=== PATIENT | male | born 1970 | race Caucasian/White ===

== ENCOUNTER 2016-09-19 08:28 | Day surgery (SDC) | payer OTHER ==
[2016-09-14 16:01] VITALS: BMI 25.7
[~2016-09-19 08:28] MED LIST: LACTATED RINGERS 1,000 ML IV SCH
[2016-09-19 08:45] VITALS: TEMP 97.4
[2016-09-19] MEDS ORDERED: LIDOCAINE 1% 20 ML VIAL (10MG/ML) FOR IV START INTRADERMA ONE (08:46)
[2016-09-19] MEDS ORDERED: TRIAMCINOLONE ACETONIDE 40 MG/ML 1 ML VIAL ONE (08:56)
[2016-09-19] MEDS ORDERED: fentaNYL (PF) 50 MCG/ML 2 ML AMP ONE (08:56)
[2016-09-19] MEDS ORDERED: MIDAZOLAM 2 MG/2 ML VIAL ONE (08:56)
[2016-09-19] MEDS ORDERED: IV FLUID CONTINUATION 1,000 ML IV ONE (09:31)
[2016-09-19 09:36] VITALS: RESP 18
[2016-09-19 09:49] VITALS: BP 107/67; PULSE 72
--- NOTE | 2016-09-19 10:11 | P.PCN ---
Date of Procedure: 09/19/16 Surgeon: Abhishek Fuentes Pathology: none sent Condition: stable Disposition: PACU Description of Procedure: PREOPERATIVE DIAGNOSIS: Lumbar spondylosis without myelopathy and facet arthropathy POSTOPERATIVE DIAGNOSIS: Lumbar spondylosis without myelopathy and facet arthropathy PROCEDURES: Left Radiofrequency thermocoagulation, L3, L4, and L5 medial branch , with fluoroscopic guidance. ANESTHESIA: 1% lidocaine plain; Conscious sedation with versed/fentanyl EBL: Minimal PROCEDURE INDICATION: The patient with low back pain secondary to lumbar arthropathy who had more than 50% relief of pain with previous diagnostic lumbar medial branch block with bupivacaine. Patient presents for RFA today; no use of blood thinners. PROCEDURE DESCRIPTION / TECHNIQUE: The patient was seen and identified in the preoperative area. Risks, benefits, complications, and alternatives were discussed with the patient (including but not limited to incomplete pain relief , bleeding, infection, nerve damage, and allergies to medications), the patient agreed to proceed with the procedure and signed the consent after all questions were answered. Patient was taken to the OR and time out was completed to verify proper patient , position, laterality of pain, and allergies. Pt was placed in the prone position. IV was started. Vital signs remained stable throughout the procedure. A pillow was placed under the patients chest to decrease lordosis. The lumbosacral area was prepped and draped in the usual sterile fashion. Vital signs were closely monitored during the procedure. Conscious sedation was used during the procedure to decrease patients anxiety. Using AP and then oblique fluoroscopy, the eye of the Naveen dog corresponding to the connection between the superior and transverse articular processes of left L4, L5 and top of the sacrum were identified, marked, and localized with 1% lidocaine. Subsequently, a 18 gauge, 100-mm radiofrequency cannula with a 10-mm active tip was advanced guided by fluoroscopy to each of the eyes of the Naveen dog at left L3, L4, and L5 medial branch levels. Each site then underwent sensory testing at 50 Hz and 0 to 1 volt and motor testing at 2 Hz and 0 to 3 volt with local stimulation, but no radicular symptoms down the legs. Thereafter the left L3, L4, and L5 medial branch sites underwent radiofrequency thermocoagulation at 80 degrees Celsius for 90 seconds after injecting 0.5 ml of PF lidocaine 1%. After thermocoagulation, 1 ml of the block solution containing Kenalog 40 mg and 2 mL of preservative-free normal saline was injected at the left L3, L4, and L5 medial branch levels after negative aspiration of CSF and blood and with no paresthesias. Cannulas were retracted while injecting lidocaine 1% until the needles were removed. At the end of the procedure, the skin was cleansed and bandages were applied. COMPLICATIONS: No acute complications. DISPOSITION / PLANS: The patient was placed in a supine position and transferred to the recovery area in a stable condition for observation and was discharged from the recovery room after meeting discharge criteria. Home discharge instructions given to the patient by the staff. The patient was reexamined prior to discharge. The patient will schedule a follow up for right lumbar RFA.
--- NOTE | 2016-09-19 10:38 | FL ---
EXAMINATION TYPE: FL guided pain mgmt statistic DATE OF EXAM: 09/19/2016 9:32 AM CLINICAL HISTORY: Low back pain. TECHNIQUE: Fluoroscopy. COMPARISON: None. FINDINGS: Fluoroscopic guidance was provided during pain relief procedure performed by Dr. Fuentes . A total of 12 seconds of fluoroscopic time was utilized during the procedure and two spot images are acquired. Images acquired shows needle localization in the lower lumbar spine from posterior approac h. IMPRESSION: As Above.
== END 2016-09-19 10:02 | disposition home or self-care (01) ==
LOC: ORPAIN 08:28
PROVIDERS: ATTEND Anesthesiology
DX: M47.816 Spondylosis without myelopathy or radiculopathy, lumbar region (principal); M46.96 Unspecified inflammatory spondylopathy, lumbar region; F32.9 Major depressive disorder, single episode, unspecified; Z79.1 Long term (current) use of non-steroidal anti-inflammatories (NSAID); Z79.899 Other long term (current) drug therapy
CPT/HCPCS: 64635; 64636 ×2; 99152; J2250; J3301; J3010

== ENCOUNTER 2016-10-25 09:24 | Day surgery (SDC) | payer OTHER ==
[2016-10-24 08:29] VITALS: BMI 25.7
[2016-10-25] MEDS ORDERED: LIDOCAINE 1% 20 ML VIAL (10MG/ML) FOR IV START INTRADERMA ONE (09:38)
[2016-10-25 09:48] VITALS: RESP 16; TEMP 97.5
[2016-10-25] MEDS ORDERED: fentaNYL (PF) 50 MCG/ML 2 ML AMP ONE (10:20)
[2016-10-25] MEDS ORDERED: MIDAZOLAM 2 MG/2 ML VIAL ONE (10:20)
[2016-10-25] MEDS ORDERED: TRIAMCINOLONE ACETONIDE 40 MG/ML 1 ML VIAL ONE (10:20)
--- NOTE | 2016-10-25 10:43 | P.PCN ---
Date of Procedure: 10/25/16 Surgeon: Abhishek Fuentes Pathology: none sent Condition: stable Disposition: PACU Description of Procedure: PREOPERATIVE DIAGNOSIS: Lumbar spondylosis without myelopathy and facet arthropathy POSTOPERATIVE DIAGNOSIS: Lumbar spondylosis without myelopathy and facet arthropathy PROCEDURES: Right Radiofrequency thermocoagulation, L3, L4, and L5 medial branch , with fluoroscopic guidance. ANESTHESIA: 1% lidocaine plain; Conscious sedation with versed/fentanyl EBL: Minimal PROCEDURE INDICATION: The patient with low back pain secondary to lumbar arthropathy who had more than 50% relief of pain with previous diagnostic lumbar medial branch block with bupivacaine. Patient presents for RFA today; no use of blood thinners. PROCEDURE DESCRIPTION / TECHNIQUE: The patient was seen and identified in the preoperative area. Risks, benefits, complications, and alternatives were discussed with the patient (including but not limited to incomplete pain relief , bleeding, infection, nerve damage, and allergies to medications), the patient agreed to proceed with the procedure and signed the consent after all questions were answered. Patient was taken to the OR and time out was completed to verify proper patient , position, laterality of pain, and allergies. Pt was placed in the prone position. IV was started. Vital signs remained stable throughout the procedure. A pillow was placed under the patients chest to decrease lordosis. The lumbosacral area was prepped and draped in the usual sterile fashion. Vital signs were closely monitored during the procedure. Conscious sedation was used during the procedure to decrease patients anxiety. Using AP and then oblique fluoroscopy, the eye of the Naveen dog corresponding to the connection between the superior and transverse articular processes of right L4, L5 and top of the sacrum were identified, marked, and localized with 1% lidocaine. Subsequently, a 18 gauge, 100-mm radiofrequency cannula with a 10-mm active tip was advanced guided by fluoroscopy to each of the eyes of the Naveen dog at right L3, L4, and L5 medial branches. Each site then underwent sensory testing at 50 Hz and 0 to 1 volt and motor testing at 2 Hz and 0 to 3 volt with local stimulation, but no radicular symptoms down the legs. Thereafter the right L3, L4, and L5 medial branch sites underwent radiofrequency thermocoagulation at 80 degrees Celsius for 90 seconds after injecting 0.5 ml of PF lidocaine 1%. After thermocoagulation, 1 ml of the block solution containing Kenalog 40 mg and 2 mL of preservative-free normal saline was injected at the right L3, L4, and L5 medial branch levels after negative aspiration of CSF and blood and with no paresthesias. Cannulas were retracted while injecting lidocaine 1% until the needles were removed. At the end of the procedure, the skin was cleansed and bandages were applied. COMPLICATIONS: No acute complications. DISPOSITION / PLANS: The patient was placed in a supine position and transferred to the recovery area in a stable condition for observation and was discharged from the recovery room after meeting discharge criteria. Home discharge instructions given to the patient by the staff. The patient was reexamined prior to discharge. The patient will schedule a follow up in the clinic in 4-6 weeks.
[2016-10-25] MEDS ORDERED: IV FLUID CONTINUATION 1,000 ML IV ONE (10:53)
--- NOTE | 2016-10-25 10:55 | FL ---
EXAMINATION TYPE: FL guided pain mgmt statistic DATE OF EXAM: 10/25/2016 10:48 AM HISTORY: Flouroscopy time 11 seconds of fluoroscopy provided. IMPRESSION: 1. Fluoroscopy time.
[2016-10-25 11:09] VITALS: BP 116/60; PULSE 56
== END 2016-10-25 11:33 | disposition home or self-care (01) ==
LOC: ORPAIN 09:24
PROVIDERS: ATTEND Anesthesiology
DX: G89.29 Other chronic pain (principal); M47.816 Spondylosis without myelopathy or radiculopathy, lumbar region; M46.96 Unspecified inflammatory spondylopathy, lumbar region; E03.9 Hypothyroidism, unspecified; Z79.1 Long term (current) use of non-steroidal anti-inflammatories (NSAID); Z79.899 Other long term (current) drug therapy
CPT/HCPCS: 64635; 64636; 99152; J2250; J3301; J3010

== ENCOUNTER → 2016-12-19 | Outpatient (CLI) | payer OTHER ==
[2016-12-19 14:41] VITALS: BP 129/79; PULSE 79; RESP 16; TEMP 97.3
--- NOTE | 2016-12-19 15:19 | P.PN ---
Subjective This is a follow-up visit for this 46 years old male, chronic history of severe low back pain with done radiofrequency ablation of the medial branch lumbar area , october and august 2016 , currently patient complaining of severe mid back pain localized mainly in the left side, he denies any motor or sensory deficit he denies any fever or night sweats and no change in bowel movement or urination, the pain is constant and increases with any activity or especially twisting of the torso Objective - Vital Signs Vital signs: Vital Signs Temp 97.3 F L 12/19/16 14:30 Pulse 79 12/19/16 14:30 Resp 16 12/19/16 14:30 BP 129/79 12/19/16 14:30 Pulse Ox 97 12/19/16 14:30 Intake & Output 12/18/16 12/19/16 12/19/16 18:59 06:59 18:59 Weight 83.007 kg - Exam Physical Examinations : 1-Constitutiona : Cooperative , not in acute distress . 2-HEENT : nech ; supple , no Lymphadenopathy , normal thyroid size . eyes : no ptosis , no icterus, no photophobia . ENT : normal of hearing , normal oropharynx , no Thrush . 3- Respiratory : Chest clear to auscultations Bilaterally , no wheezing , no Rhonchi . 4- Cardiovascular : regular rate and rhythem , S1 , S2 , no S3 , no S4. 5- Gastrointestinal : abdomen soft no tenderness , bowel sounds positive all four quadrents , no organomegally . 6- Genitourinary : Defferred . 7- neurologic : Cranial nerve II to XII intact , no focal neurological deffecit . 8-psychatric : alert , oriented X 3 , appropriate affect , intact judgment and insight . 9-Lymphatic : no Lymphadenopathy . 10- musculoskeltal : Thoracic spine= severe tenderness over the left side thoracic paravertebral muscles Lumber spine = normal moter stegnth lower extremities ,thigh and legs .5/5 deep tendon reflexes : normal Knee Jerk , normal ankle Jerk . positive lumber facet Loading Test strait leg raising test positive at 30 degree , RT ,LT , Fabere test positive RT and positive LT . Sever tenderness over the Sacroiliac joint on the Right , and Left side Assessment and Plan Plan: Assessment and plan= -chronic low back pain secondary to lumbar degenerative disc disease , lumbar spondylosis with lumbar facet arthropathy without myelopathy, Status post radiofrequency ablation of the medial branch lumbar area,(low back pain improved ) Myofascial pain syndrome thoracic paravertebral muscles Patient could benefit from physical therapy/massage to the thoracic paravertebral muscles Patient could benefit from Voltaren gel 1% to be applied to the thoracic area to 6 hours, discussed with the patient the option of giving him muscle relaxants and patient prefer not to have muscle relaxant because he is concerned about the side effect which is drowsiness and he will follow up with the pain clinic in 2 months Time with Patient: Less than 30
== END ==
LOC: PNWHC3 14:22
PROVIDERS: ATTEND Specialist
DX: M51.36 Other intervertebral disc degeneration, lumbar region (principal); M47.816 Spondylosis without myelopathy or radiculopathy, lumbar region; M46.86 Other specified inflammatory spondylopathies, lumbar region; M79.1 Myalgia
CPT/HCPCS: 99211

== ENCOUNTER → 2018-04-03 | Outpatient (CLI) | payer OTHER ==
--- NOTE | 2018-04-04 01:27 | MR ---
EXAMINATION TYPE: MR brain wo/w con DATE OF EXAM: 04/03/2018 COMPARISON: None HISTORY: Tinnitus/Hearing loss/Headaches TECHNIQUE: Multiplanar, multisequence images of the brain and brainstem is performed without and with IV contras t, utilizing 9 mL intravenous Gadavist . FINDINGS: Ventricles and sulci appear normal. There is no mass effect nor midline shift. There is no sign of in tracranial hemorrhage. Corpus callosum appears normal. Brainstem appears normal. There is minimal muc osal thickening right maxillary sinus. Sella turcica is normal. I see no evidence of cerebral edema. I see no pathologic enhancement. IMPRESSION: Negative MR scan of the brain.
== END | disposition home or self-care (01) ==
LOC: RADMRIMAIN 20:58
PROVIDERS: ATTEND Family Medicine
DX: R51 Headache (principal); H91.8X1 Other specified hearing loss, right ear
CPT/HCPCS: 70553; A9581

== ENCOUNTER → 2020-05-04 | Outpatient (CLI) | payer BC ==
--- NOTE | 2020-05-04 08:31 | US ---
EXAMINATION TYPE: US thyroid st tissue head/neck DATE OF EXAM: 05/04/2020 COMPARISON: NONE CLINICAL HISTORY: E04.1 thyroid nodule. 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 Doctor felt palpable left upper neck. GLAND SIZE: Right Lobe: 3.7 x 1.0 x 1.3 cm Overall Parenchyma: heterogenous Left Lobe: 3.3 x 0.8 x 1.2 cm Overall Parenchyma: heterogeneous Isthmus Thickness: 0.2 cm NODULES RIGHT: # of nodules measured on right: 0 LEFT: # of nodules measured on left: 0 ISTHMUS: # of nodules measured in the isthmus: 0 Bilateral neck scanned: couple of lymph nodes seen superior to left thyroid in region of palpable wi th larger lymph node = 1.4 x 1.1 x 0.6cm. One appears to have eccentric cortical weakening. IMPRESSION: Small sized heterogeneous thyroid without discrete nodule. Prominent but subcentimeter le ft neck lymph nodes. One appears to have eccentric cortical thickening. Differential includes infecti ous, inflammatory, and neoplastic processes. Consider contrast enhanced neck CT follow-up based on cl inical correlation. (I.e. if adenopathy or palpable abnormality persists)
== END | disposition home or self-care (01) ==
LOC: RADUSWWP 07:38
PROVIDERS: ATTEND Family Medicine
DX: E07.89 Other specified disorders of thyroid (principal)
CPT/HCPCS: 76536

== ENCOUNTER → 2020-05-12 | Outpatient (CLI) | payer BC ==
--- NOTE | 2020-05-12 15:25 | CT ---
EXAMINATION TYPE: CT soft tissue neck w con DATE OF EXAM: 05/12/2020 COMPARISON: Thyroid ultrasound 05/04/2020 HISTORY: 49-year-old male R59.0, Localized enlarged lymph nodes TECHNIQUE: Contiguous axial scanning of the soft tissues of the neck performed with IV Contrast, karl ent injected with 100 ml mL of Isovue 300. Coronal/sagittal reconstructions performed. CT DLP: 662 mGycm Automated exposure control for dose reduction was used. FINDINGS: Slight leftward nasal septal deviation. Visualized paranasal sinuses are clear. There is small amount of fluid trapped within the inferior mastoid air cells on both sides. Nasopharynx is clear. Bilateral palatine tonsillar hypertrophy. Oropharynx otherwise clear. Prominent dental amalgam artifact obscuring most of the oral cavity. Epiglottis and prevertebral soft tissues are satisfactory. Glottic and subglottic structures as well as the visualized upper lungs are clear. Thyroid gland is small as seen on the thyroid ultrasound. Submandibular and parotid glands are satisfactory. Clustered prominent but nonenlarged left station 2A lymph nodes in the upper neck measure up to 1.1 c m short axis, refer to axial image 26 and coronal image 60 and 61. A palpable marker is present just below this level overlying the sternocleidomastoid. Some prominent but nonenlarged right upper cervical lymph nodes measure up to 1.0 cm, axial image 22 and sagittal image 27. Some reversal of the normal cervical lordosis could be positional or due to muscle spasm. IMPRESSION: 1. SOME PROMINENT BUT NONENLARGED LYMPH NODES IN THE UPPER NECK, LEFT GREATER THAN RIGHT MEASURING UP TO 1.1 CM SHORT AXIS. PROBABLY REACTIVE/POST INFLAMMATORY. A PALPABLE MARKER IS PLACED OVERLYING THE LEFT STERNOCLEIDOMASTOID JUST BELOW THIS LEVEL. PROBABLY REACTIVE/POST INFLAMMATORY. CLINICAL FOLLOW -UP IS RECOMMENDED. IF ANY ENLARGING LYMPH NODES, REPEAT ULTRASOUND OR CT CAN BE CONSIDERED. 2. SOME TRAPPED FLUID WITHIN THE BILATERAL MASTOID AIR CELLS. CORRELATE FOR ANY MASTOID PAIN TO EXCLU DE MASTOIDITIS.
== END | disposition home or self-care (01) ==
LOC: RADCTMAIN 13:34
PROVIDERS: ATTEND Family Medicine
DX: R59.0 Localized enlarged lymph nodes (principal)
CPT/HCPCS: 70491; Q9967

== ENCOUNTER 2020-06-08 09:45 | Day surgery (SDC) | payer BC ==
[2020-06-05 12:08] VITALS: BMI 26.4
[~2020-06-08 09:45] MED LIST changes: +LIDOCAINE 1% (10MG/ML) FOR IV START INTRADERMA PRN
[2020-06-08 10:39] VITALS: TEMP 97.5
[2020-06-08] MEDS ORDERED: fentaNYL (PF) 50 MCG/ML 2 ML AMP ONE (11:07)
[2020-06-08] MEDS ORDERED: MIDAZOLAM 2 MG/2 ML VIAL ONE (11:07)
[2020-06-08] MEDS ORDERED: PROPOFOL 10 MG/ML 20 ML VIAL IV ONE (11:07)
[2020-06-08] MEDS ORDERED: ONDANSETRON 4 MG/2 ML VIAL IVP ONE ×2 (11:27→11:50)
--- NOTE | 2020-06-08 11:27 | P.PCN ---
Date of Procedure: 06/08/20 Description of Procedure: BRIEF HISTORY: Patient is a 49-year-old male presented for outpatient EGD for evaluation of symptoms of nausea with vomiting. Patient reports symptoms over the past year. Frequent episodes of nausea and vomiting. These can occur in the morning or at any time during the day. These occur after eating but also on an empty stomach. He reports extensive workup in the past. PROCEDURE PERFORMED: Esophagogastroduodenoscopy with biopsy. PREOPERATIVE DIAGNOSIS: Nausea with vomiting. ESTIMATED BLOOD LOSS: Minimal. IV sedation per anesthesia. PROCEDURE: After informed consent was obtained, the patient was brought into the endoscopy unit. IV sedation was administered by Anesthesia under continuous monitoring. Initially the Olympus GIF-190 video endoscope was inserted into the mouth. Esophagus intubated without any difficulty. It was gradually advanced into the stomach and duodenum and carefully examined. The bulb and the second part of the duodenum appeared normal, with biopsies taken to rule out celiac sprue. The scope at this time was withdrawn to the stomach, adequately insufflated with air, and upon careful examination, mucosa of the antrum, body, cardia and the fundus appeared normal, except for some mild punctate erythema in the antrum and body suggestive of mild gastritis biopsies taken. The scope was then withdrawn into the esophagus. The GE junction was located at 39 cm from the incisors and biopsied. The esophagus appeared normal. There were no erosions or ulcerations seen and the patient tolerated the procedure well. IMPRESSION: 1. Mild gastritis. 2. Biopsies of the duodenum, antrum body and GE junction. RECOMMENDATIONS: The findings of this examination were discussed with the patient and his family. Okay to resume diet. Okay to resume medications. Await pathology from biopsies. Follow up with primary care provider as previously scheduled.
[2020-06-08] MEDS ORDERED: ONDANSETRON 4 MG/2 ML VIAL ONE (11:57)
[2020-06-08 12:03] VITALS: BP 115/75; PULSE 55; RESP 20
== END 2020-06-08 12:35 | disposition home or self-care (01) ==
LOC: ORWHC2ENDO 09:45
PROVIDERS: ATTEND Internal Medicine
DX: K29.50 Unspecified chronic gastritis without bleeding (principal); K20.90 Esophagitis, unspecified without bleeding; E78.5 Hyperlipidemia, unspecified; G47.33 Obstructive sleep apnea (adult) (pediatric); E07.9 Disorder of thyroid, unspecified; F41.9 Anxiety disorder, unspecified; F32.9 Major depressive disorder, single episode, unspecified; Z79.899 Other long term (current) drug therapy; Z79.1 Long term (current) use of non-steroidal anti-inflammatories (NSAID); Z79.890 Hormone replacement therapy; Z98.890 Other specified postprocedural states; Z99.89 Dependence on other enabling machines and devices
CPT/HCPCS: 88305; 43239; J2250; J2405; J3010; J2704

== ENCOUNTER → 2020-06-16 | Day surgery (SDC) | payer BC ==
[2020-06-12 15:45] VITALS: BMI 26.4
[~2020-06-16] MED LIST changes: +PROPOFOL 10 MG/ML 20 ML VIAL IV ONE
[2020-06-16 10:51] VITALS: RESP 16; TEMP 97.1
--- NOTE | 2020-06-16 12:38 | P.PCN ---
Date of Procedure: 06/16/20 Description of Procedure: BRIEF HISTORY: Patient is a 49-year-old male presenting for colonoscopy for evaluation of history of colon polyps. He does report abdominal pain and altered bowel function with some diarrhea. He has had colonoscopies in the past for polypectomy the 4 years ago by his report PROCEDURE PERFORMED: Colonoscopy with biopsy and polypectomy. PREOPERATIVE DIAGNOSIS: History of colon polyps, patient reports last colonoscopy 4 years ago ESTIMATED BLOOD LOSS: Minimal. IV sedation per Anesthesia. PROCEDURE: After informed consent was obtained, the patient, was brought into the endoscopy unit. IV sedation was administered by Anesthesia under continuous monitoring. Digital rectal examination was normal. Initially the Olympus CF-190 flexible video colonoscope was then inserted in the rectum, gradually advanced into the cecum without any difficulty. Careful examination was performed as the scope was gradually being withdrawn. Ileocecal valve and the appendiceal orifice were visualized and appeared normal. Prep was excellent. Mucosa of the cecum, ascending colon, transverse colon, descending colon, sigmoid colon, and rectum appeared normal, with random biopsies taken of the right colon and a normal- appearing terminal ileum in the setting of altered bowel function . Diminutive polyps measuring 2-3 mm in size removed from the cecum and sigmoid colon with cold forcep polypectomy.Retroflexion was performed in the rectum and no lesions were seen. The patient tolerated the procedure well. IMPRESSION: 2 diminutive colon polyps measuring removed from the sigmoid colon and cecum with cold forcep polypectomy. Normal-appearing colon from rectum to cecum and normal-appearing terminal ileum with random biopsies taken of the right colon, left colon and terminal ileum in the setting of altered bowel function . RECOMMENDATIONS: Findings of this examination were discussed with the patient .and his . Okay to resume diet. Okay to resume medications. Await pathology from polypectomy and biopsies. Recommend repeat colonoscopy in 5 years for history of colon polyps, pending pathology from polypectomy times
[2020-06-16 13:23] VITALS: BP 112/77; PULSE 66
== END ==
LOC: ORWHC2ENDO 10:06
PROVIDERS: ATTEND Internal Medicine
DX: K63.5 Polyp of colon (principal); R19.4 Change in bowel habit; R19.7 Diarrhea, unspecified; R10.9 Unspecified abdominal pain; Z86.010 Personal history of colon polyps; E78.5 Hyperlipidemia, unspecified; E07.9 Disorder of thyroid, unspecified; F41.9 Anxiety disorder, unspecified; Z98.890 Other specified postprocedural states; Z79.1 Long term (current) use of non-steroidal anti-inflammatories (NSAID); Z79.890 Hormone replacement therapy; Z79.899 Other long term (current) drug therapy
CPT/HCPCS: 88305; 45380; J2704

== ENCOUNTER 2020-06-23 12:19 | Day surgery (SDC) | payer BC ==
[2020-06-23] MEDS ORDERED: ALPRAZolam 0.5 MG TAB PO PRN (12:32)
[2020-06-23 12:54] VITALS: TEMP 97.8
[2020-06-23 14:12] VITALS: BP 123/65; PULSE 59; RESP 16
--- NOTE | 2020-06-23 15:53 | US ---
ULTRASOUND GUIDED FNA LEFT NECK LYMPH NODE: CLINICAL HISTORY: Left neck lymph node FINDINGS: The procedure was explained to the patient. The risks, complications, benefits and alternatives were discussed and any questions were answered. Informed consent was obtained. Patient was placed supin e on the ultrasound table and prepped and draped in the usual sterile fashion. Utilizing a 25 gauge needle, five passes were made into the requested left neck lymph node. Patient was stable throughout the procedure. Pathology is pending. All elements of maximal barrier technique were utilized. IMPRESSION: 1. Successful ultrasound guided FNA left neck lymph node biopsy.
== END 2020-06-23 13:45 | disposition home or self-care (01) ==
LOC: RADPROMAIN 12:19
PROVIDERS: ATTEND Otolaryngology
DX: R59.0 Localized enlarged lymph nodes (principal)
CPT/HCPCS: 10005; 88173; 88305

== ENCOUNTER → 2020-08-03 | Outpatient (CLI) | payer BC ==
--- NOTE | 2020-08-03 11:37 | P.STRESS ---
- Stress Test Note Stress Test Results/Findings: Exam Performed: stress echo exercise Exam Date: 08/03/20 Reason for Exam: CHEST PAIN Height: 6 ft Weight: 196 kg Protocol: EXERCISE STRESS ECHO Stage: IV Duration of Exercise: 10:01 Resting Heart Rate: 69 Resting Blood Pressure: 139/85 Maximum Achieved Heart Rate: 146 Maximum Achieved Blood Pressure: 209/93 85% PMHR: 144 100% PMHR: 169 METS: 11.7 Technologist Comment: Stress Test Results/Findings: This is a 50-year-old gentleman with history of chest pain or shortness of breath. Being evaluated for cardiac status. Stress data base an EKG showed sinus rhythm with normal GA interval QRS duration. Blood pressure at rest is 139/85, pulse rate of 69. Patient walked on the Mello protocol for 10 minutes achieving a maximum heart rate of 146 with a blood pressure of 209/93. EKGs taken during and after the exercise did not reveal an significant change from the baseline. Patient did complain of some chest pain with exercise. Echo data: Baseline echo images show normal wall motion and thickening. Exercise echo images showed augmentation of wall motion and thickening in all the segments. Final impression: #1. Negative stress test #2. Negative stress echo. #3. Patient had chest pain during exercise unassociated with any EKG changes.
--- NOTE | 2020-08-03 16:43 | ECHOS ---
Stress Test Results/Findings: Exam Performed: stress echo exercise Exam Date: 08/03/20 Reason for Exam: CHEST PAIN Height: 6 ft Weight: 196 kg Protocol: EXERCISE STRESS ECHO Stage: IV Duration of Exercise: 10:01 Resting Heart Rate: 69 Resting Blood Pressure: 139/85 Maximum Achieved Heart Rate: 146 Maximum Achieved Blood Pressure: 209/93 85% PMHR: 144 100% PMHR: 169 METS: 11.7 Technologist Comment: Stress Test Results/Findings: This is a 50-year-old gentleman with history of chest pain or shortness of breath. Being evaluated for cardiac status. Stress data base an EKG showed sinus rhythm with normal DC interval QRS duration. Blood pressure at rest is 139/85, pulse rate of 69. Patient walked on the Mello protocol for 10 minutes achieving a maximum heart rate of 146 with a blood pressure of 209/93. EKGs taken during and after the exercise did not reveal an significant change from the baseline. Patient did complain of some chest pain with exercise. Echo data: Baseline echo images show normal wall motion and thickening. Exercise echo images showed augmentation of wall motion and thickening in all the segments. Final impression: #1. Negative stress test #2. Negative stress echo. #3. Patient had chest pain during exercise unassociated with any EKG changes. JESSICAD
== END | disposition home or self-care (01) ==
LOC: RADNMMAIN 09:03
PROVIDERS: ATTEND Family Medicine
DX: R07.89 Other chest pain (principal)
CPT/HCPCS: 93351

== ENCOUNTER → 2020-08-31 | Outpatient (CLI) | payer BC ==
--- NOTE | 2020-08-31 10:32 | US ---
EXAMINATION TYPE: US st tissue neck DATE OF EXAM: 08/31/2020 COMPARISON: Follow-up from 05/04/2020 CLINICAL HISTORY: 50-year-old male R22.1 LT NECK MASS. FNA of node on the left neck 06/21 TECHNIQUE: Targeted ultrasound examination along the left lateral neck at the site of previous lymph node biopsy. FINDINGS: Device Test Engineer notes: Soft tissue scan of left neck produced 2 lymph nodes adjacent to each other, large st = 1.2 x 1.1 x 0.8cm. Both have fatty hilum with normal vascularity noted. Previous measurement on 05/04/2020 was 1.4 x 1.1 x 0.6 cm. Not significantly changed. IMPRESSION: Two prominent but nonenlarged lymph nodes remain along the left lateral aspect of the neck measuring up to 1.2 x 1.1 cm (versus 1.4 x 1.1 cm, previously) corresponding to the site of previous biopsy.
== END ==
LOC: RADUSWWP 08:49
PROVIDERS: ATTEND Otolaryngology
DX: R22.1 Localized swelling, mass and lump, neck (principal)
CPT/HCPCS: 76536

== ENCOUNTER → 2021-03-16 | Outpatient (CLI) | payer BC | END | disposition home or self-care (01) | LOC: LABWHC1 15:26 | PROVIDERS: ATTEND Family Medicine | DX: Z20.822 Contact with and (suspected) exposure to COVID-19 (principal); R06.02 Shortness of breath | CPT/HCPCS: U0003; C9803; U0005 ==

== ENCOUNTER → 2021-06-04 | Outpatient (CLI) | payer BC ==
[2021-06-04 13:02] LABS: Basophils % (A) 1 %; Eosinophils # (A) 0.2 k/uL (0-0.7); Eosinophils % (A) 3 %; HCT 47.4 % (39.0-53.0); HGB 16.5 gm/dL (13.0-17.5); Lymphocytes # (A) 1.8 k/uL (1.0-4.8); Lymphocytes % (A) 34 %; MCH 30.3 pg (25.0-35.0); MCHC 34.9 g/dL (31.0-37.0); Mean Platelet Volume 7.2; Monocytes # (A) 0.4 k/uL (0-1.0); Monocytes % (A) 7 %; Neutrophils % (A) 54 %; Platelet Count 304 k/uL (150-450); RBC 5.44 m/uL (4.30-5.90); RDW 11.8 % (11.5-15.5); WBC 5.5 k/uL (3.8-10.6)
[2021-06-04 13:16] LABS: Potassium 4.4 mmol/L (3.5-5.1)
== END | disposition home or self-care (01) ==
LOC: LABPAT 11:02
PROVIDERS: ATTEND Orthopaedic Surgery Hand Surgery
DX: Z01.818 Encounter for other preprocedural examination (principal); R22.42 Localized swelling, mass and lump, left lower limb
CPT/HCPCS: 36415; 80051; 85025; 93005

== ENCOUNTER 2021-06-16 08:55 | Day surgery (SDC) | payer BC ==
[2021-06-14 09:02] VITALS: BMI 26.8
--- NOTE | 2021-06-14 10:31 | P.HPOR ---
History of Present Illness H&P Date: 06/14/21 Chief Complaint: Left index finger soft tissue mass Subjective: This is a 50 year old male that presents today for initial evaluation regarding left index finger soft tissue mass that has been present for around 1 year. He states he has noticed the mass getting larger and more prominent over the last several months. He states it is painful whenever he puts pressure or grasps things that push against the mass directly. He denies any numbness or tingling in the digit, he does have a hx of a carpal tunnel release on this side performed in 2011 and has had no issues since. Physical Examination: LUE: AIN/PIN/Radial/Ulnar/Median motor intact. Radial/Ulnar/Median SILT. 2+/4 Radial/Ulnar pulses palpated. Round, semi-mobile soft tissue mass along ulnar boarder of index finger at mid level of the proximal phalanx, mass has a very faint bluish hue appearance. NTTP over A1 Elfego of digit. Full PIP/MCP ROM. Imaging: X-Rays of the left index finger demonstrate no acute osseus abnormality. Impression: 1.) Left index finger volar ulnar soft tissue mass at level of proximal phalanx. Plan: Diagnosis and treatment options were discussed with the patient. It has been present for over a year and he wishes to have the mass excised. Risks and benefits of the surgery were discussed with the patient and he wishes to proceed with scheduling. He will be scheduled for left index finger soft tissue mass excision. Pre-op labs and EKG will be obtained. The patient was agreeable with this plan of action. Past Medical History Past Medical History: Hyperlipidemia, Thyroid Disorder Additional Past Medical History / Comment(s): Jose disease. Chronic Back Pain History of Any Multi-Drug Resistant Organisms: None Reported Past Surgical History: Back Surgery, Orthopedic Surgery Additional Past Surgical History / Comment(s): "plastic sugery on ears". BACK SURG X2. PAIN CLINIC INJECTIONS. LT WRIST SX Past Anesthesia/Blood Transfusion Reactions: No Reported Reaction Past Psychological History: Anxiety Smoking Status: Never smoker Past Alcohol Use History: Occasional Past Drug Use History: None Reported - Past Family History Father Additional Family Medical History / Comment(s): Heart disease Medications and Allergies Home Medications Medication Instructions Recorded Confirmed Type Levothyroxine Sodium [Synthroid] 200 mcg PO HS 05/25/16 06/14/21 History Atorvastatin [Lipitor] 20 mg PO DAILY 06/05/20 06/14/21 History Loperamide [Imodium] 2 mg PO QID PRN 06/05/20 06/14/21 History Meloxicam [Mobic] 15 mg PO HS 06/05/20 06/14/21 History Vortioxetine Hydrobromide 20 mg PO HS 06/05/20 06/14/21 History [Trintellix] lamoTRIgine [LaMICtal] 150 mg PO HS 06/05/20 06/14/21 History Allergies Allergy/AdvReac Type Severity Reaction Status Date / Time No Known Allergies Allergy Verified 06/14/21 08:53 Physical Examination Osteopathic Statement: *. No significant issues noted on an osteopathic structural exam other than those noted in the History and Physical/Consult.
[~2021-06-16 08:55] MED LIST changes: +DEXAMETHASONE SOD PHOSPHATE 4 MG/ML 1 ML VIAL IV ONE; +HYDROmorphone 0.5 MG/0.5 ML SYRINGE IVP PRN; +ONDANSETRON 4 MG/2 ML VIAL IVP ONE; -PROPOFOL 10 MG/ML 20 ML VIAL IV ONE; +Pre Op ABX Message 1 EACH MISC MISCELLANE ONE
[2021-06-16 09:23] VITALS: TEMP 97.6
[2021-06-16] MEDS ORDERED: ONDANSETRON 4 MG/2 ML VIAL ONE (09:27)
[2021-06-16] MEDS ORDERED: .fentaNYL (PF) 50 MCG/ML 2 ML AMP ONE (10:21)
[2021-06-16] MEDS ORDERED: KETAMINE 10 MG/ML 20 ML VIAL ONE (10:21)
[2021-06-16] MEDS ORDERED: PROPOFOL 10 MG/ML 20 ML VIAL IV ONE (10:21)
[2021-06-16] MEDS ORDERED: MIDAZOLAM 2 MG/2 ML VIAL ONE (10:21)
[2021-06-16] MEDS ORDERED: BUPIVACAINE (PF) 0.5% 30 ML VIAL SQ ONE ×2 (10:26→10:33)
[2021-06-16] MEDS ORDERED: LIDOCAINE 1% INJ 10MG/ML (20 ML MDV) SQ ONE ×2 (10:27→10:33)
[2021-06-16 11:21] VITALS: BP 129/76; PULSE 58; RESP 20
--- NOTE | 2021-06-16 21:26 | P.OP ---
Date of Procedure: 06/16/21 Preoperative Diagnosis: Left index finger soft tissue mass Postoperative Diagnosis: Left index finger soft tissue mass Procedure(s) Performed: Left index finger soft tissue mass excision, vascular tumor. Anesthesia: MAC Surgeon: Francisco Sears [employer] Career Manager #1: Mykel Strickland Estimated Blood Loss (ml): 0 Pathology: other (Left index finger mass) Condition: stable Disposition: PACU Description of Procedure: This is a 50 year old male who has a symptomatic left index finger soft tissue mass that has failed conservative treatment and presents today for surgical intervention. Risks and benefits of surgery were discussed with the patient including bleeding, damage to surrounding tissue, infection, need for further surgery as well as risks of anesthesia including pulmonary embolism and even and the patient wished to proceed with surgical intervention. The patient was seen in the pre-operative area by myself. Consent and H&P were completed and updated. The correct extremity was marked in the pre-operative area by myself and all other questions were answered. Operative Narrative: The patient was brought to the operating room by the department of anesthesia. They remained on the portable stretcher and a rolling hand table was brought to the side of the operative extremity. Pre-operative time out was performed indicating the correct patient, procedure and laterality. All in the room agreed. The patient was then drifted off to sleep by the department of anesthesia. A nonsterile tourniquet was then applied to the operative extremity and the left upper extremity was then prepped and draped in normal sterile fashi on. A digital block of the left index finger was performed using 10cc of a 50:50 mixture of 1% lidocaine and 0.5% bupivicaine. The operative extremity was the exsanguinated with an esmarch bandage and the tourniquet was inflated to 250mmHg. Longitudinal incision was made directly over the mass of the volar skin, approximately 4mm long. Blunt dissection was then performed which revealed a vascular appearing oval mass approximately 5mm in diameter that was branching off of the venous structures of the finger along the radial boarder of the digit. The mass was bluntly dissected out and retractors were placed to protect the radial digital neurovascular bundle. Proximal and distal ends were cauterized with a bovie and the mass was excised in its entirety and sent to pathology. Skin closure was performed with 4-0 nylon suture. Sterile dressing of adaptic, 4x4's, webril and joseph wrap bandage was applied. The tourniquet was let down and the finger had immediate perfusion. The patient was then woken by the department of anesthesia and transferred to PACU in stable condition. Francisco Sears D.O. Orthopedic Hand/Upper Extremity Surgeon
== END 2021-06-16 12:00 | disposition home or self-care (01) ==
LOC: OR 08:55
PROVIDERS: ATTEND Orthopaedic Surgery Hand Surgery
DX: I82.890 Acute embolism and thrombosis of other specified veins (principal); E78.5 Hyperlipidemia, unspecified; G89.29 Other chronic pain; M54.9 Dorsalgia, unspecified; E06.3 Autoimmune thyroiditis; Z79.899 Other long term (current) drug therapy; F41.9 Anxiety disorder, unspecified; E11.9 Type 2 diabetes mellitus without complications; G47.33 Obstructive sleep apnea (adult) (pediatric); Z79.4 Long term (current) use of insulin
CPT/HCPCS: 88305; 35206; J2250; J1100; J2405; J2001; J3010; J2704